=== PATIENT | male | born 1955 | race Caucasian/White ===

== ENCOUNTER 2025-06-16 17:49 | Day surgery (SDC) | payer OTHER ==
[2025-06-16] MEDS ORDERED: Ondansetron 4 MG/2 ML SDV ONE (18:38)
[2025-06-16] MEDS ORDERED: Propofol 200 MG/20 ML SDV ONE (18:38)
[2025-06-16] MEDS ORDERED: fentaNYL 100 MCG/2 ML SDV ONE (18:39)
[2025-06-16] MEDS ORDERED: Succinylcholine 200 MG/10 ML MDV ONE (18:40)
== END 2025-06-16 19:53 | disposition home or self-care (01) ==
LOC: JD.ED 17:49 → JD.SDS 18:48
PROVIDERS: ATTEND Surgery
DX: K20.0 Eosinophilic esophagitis (principal); T18.128A Food in esophagus causing other injury, initial encounter; K22.89 Other specified disease of esophagus; W44.8XXA Other foreign body entering into or through a natural orifice, initial encounter
CPT/HCPCS: 43239; 99284; J0330; J2003; J2405; J2704; J3010; 00731; 99140; J3490